=== PATIENT | male | born 1950 | race Hispanic/Latino ===

== ENCOUNTER 2019-03-04 16:00 | Observation (INO) | payer BC, OTHER ==
[2019-03-04 16:32] VITALS: BMI 24.7
[2019-03-04 16:48] LABS: Absolute Lymphocytes (CBC) 2.9 K/uL (0.7-4.9); Basophils % 1.1 % (0-1.3); Hematocrit 41.8 % (39.6-49.0); Lymphocytes % 33.5 % (15.3-44.8); MPV 8.3 fL (7.6-11.3); RBC Red Blood Cell Count 4.75 M/uL (4.33-5.43)
[2019-03-04] MEDS ORDERED: NA CHLORIDE 0.9% 1,000 ML IV SCH (17:00)
[2019-03-04] MEDS ORDERED: ONDANSETRON 4 MG/2 ML VIAL IV PRN (17:04)
[2019-03-04] MEDS ORDERED: ACETAMINOPHEN 500 MG TAB PO PRN (17:04)
[2019-03-04 17:08] LABS: Albumin 3.9 g/dL (3.4-5.0); Bilirubin Total 0.9 mg/dL (0.2-1.0); CKMB Creatine Kinase MB 1.2 ng/mL (0.3-3.6); Phosphorus 3.3 mg/dL (2.5-4.9); Potassium 4.1 mmol/L (3.5-5.1); Protein, Total 7.7 g/dL (6.4-8.2)
[2019-03-04] MEDS: NA CHLORIDE 0.9% 1,000 ML IV SCH (17:13)
--- NOTE | 2019-03-04 17:14 | P.HP ---
Certification for Inpatient Patient admitted to: Observation With expected LOS: <2 Midnights Patient will require the following post-hospital care: None Practitioner: I am a practitioner with admitting privileges, knowledge of patient current condition, hospital course, and medical plan of care. Services: Services provided to patient in accordance with Admission requirements found in Title 42 Section 412.3 of the Code of Federal Regulations Patient History Date of Service: 03/04/19 Reason for admission: BILL History of Present Illness: 68-year-old male with past medical history of hypertension was sent from Dr. Cagle`s office as his blood work showed acute kidney injury and was sent here for IV hydration in view of the possible renal insufficiency due to dehydration. Patient denies any symptoms at this time. Denies any chest pain or shortness of breath. No fever no chills. No diarrhea or nausea vomiting. No sick contacts. Allergies Sulfa (Sulfonamide Antibiotics) [Sulfa(Sulfonamide Antibiotics)] Allergy ( Intermediate, Verified 08/15/11 22:10) Itching/Hives/Rash Home medications list reviewed: Yes Home Medications: Metoprolol Tartrate 25 mg PO BID 03/04/19 Omeprazole [Prilosec] 40 mg PO DAILY PRN 03/04/19 - Past Medical/Surgical History Has patient received pneumonia vaccine in the past: Yes Diabetic: No Past Medical History: Reviewed- Non-Contributory -: htn Past Surgical History: Reviewed- Non-Contributory -: Appendectomy - Family History Family History: Reviewed- Non-Contributory - Social History Smoking Status: Never smoker Place of Residence: Home Review of Systems 10-point ROS is otherwise unremarkable General: Unremarkable ENT: Unremarkable Respiratory: Unremarkable Physical Examination - Vital Signs Temperature: 97.8 F Blood Pressure: 136/86 Pulse: 86 Respirations: 18 - Physical Exam General: Alert, In no apparent distress, Oriented x3 HEENT: Atraumatic, Normocephalic Neck: Supple, 2+ carotid pulse no bruit Respiratory: Clear to auscultation bilaterally, Normal air movement Cardiovascular: Normal pulses, Regular rate/rhythm Capillary refill: <2 Seconds Gastrointestinal: Soft and benign, W/out hepatosplenomegaly Musculoskeletal: No clubbing, No swelling Integumentary: No rashes, No tenderness/swelling Neurological: Normal speech, Normal strength at 5/5 x4 extr Lymphatics: No axilla or inguinal lymphadenopathy Urinary: Other (No bladder distention) External genitalia: Deferred Rectal: Deferred - Studies Laboratory Data (last 24 hrs) 03/04/19 16:35: Sodium 140, Potassium 4.1, BUN 51 H, Creatinine 3.82 H, Glucose 90, Phosphorus 3.3, Total Bilirubin 0.9, AST 10 L, ALT 17, Alkaline Phosphatase 88 03/04/19 16:35: WBC 8.7, Hgb 14.5, Hct 41.8, Plt Count 239 Assessment and Plan - Problems (Diagnosis) (1) Acute kidney injury Current Visit: Yes Status: Acute Plan: Will monitor under telemetry Start on IV hydration Will monitor renal parameters Consult nephrology (2) Dehydration Current Visit: Yes Status: Acute Plan: Start on IV hydration Monitor closely (3) Hypertension Current Visit: Yes Status: Chronic Plan: Continue home medications and titrate as needed (4) GERD (gastroesophageal reflux disease) Current Visit: Yes Status: Chronic Plan: Continue home medications and titrate as needed Discharge Plan: Home Plan to discharge in: 24 Hours - Advance Directives Does patient have a Living Will: No Does patient have a Durable POA for Healthcare: No Time Spent Managing Pts Care (In Minutes): 45
[2019-03-04] MEDS ORDERED: PANTOPRAZOLE 40MG TABLET PO PRN (17:35)
[2019-03-04 19:01] LABS: Urine Appearance CLEAR; Urine Bilirubin NEGATIVE (NEG); Urine Color YELLOW; Urine Glucose NEGATIVE (NEG)
[2019-03-04 19:02] LABS: Urine Blood TRACE (NEG); Urine Microscopic Reflex ORDER UMIC; Urine Protein NEGATIVE (NEG); Urine Urobilinogen 0.2 mg/dL (0.2-1.0)
[2019-03-04 19:03] LABS: Urine Bacteria <20 /HPF (NONE SEEN); Urine Culture Reflex Order NOT NEEDED; Urine RBC <5 /HPF (NONE SEEN)
--- NOTE | 2019-03-04 20:12 | RAD REPORT ---
EXAM DESCRIPTION: US - Renal Ultrasound-Complete - 03/04/2019 8:05 pm CLINICAL HISTORY: BILL Flank pain COMPARISON: Abdomen Exam Complete dated 10/03/2016 FINDINGS: Both kidneys demonstrate increased echogenicity. The right kidney measures 8.0 x 4.1 x 4.1 cm. No hydronephrosis, focal mass or perinephric fluid. The left kidney measures 10.7 x 3.8 x 3.8 cm. No hydronephrosis, focal mass or perinephric fluid. The urinary bladder is incompletely distended without gross abnormality seen. Rounded cystic structur e is seen superior to the urinary bladder. IMPRESSION: Echogenic kidneys bilaterally compatible with underlying medical renal disease. Rounded cystic structure is seen superior to the urinary bladder of unclear etiology. CT abdomen/pelv is may be helpful for further workup.
[2019-03-04] MEDS: METOPROLOL TAR 25 MG TAB PO SCH (20:21)
[2019-03-05] MEDS: NA CHLORIDE 0.9% 1,000 ML IV SCH (03:23)
[2019-03-05 05:43] LABS: Absolute Lymphocytes (CBC) 1.8 K/uL (0.7-4.9); Basophils % 0.7 % (0-1.3); Hematocrit 39.4 % (39.6-49.0); Lymphocytes % 27.4 % (15.3-44.8); MPV 8.3 fL (7.6-11.3); RBC Red Blood Cell Count 4.47 M/uL (4.33-5.43)
[2019-03-05 05:48] LABS: Albumin 3.4 g/dL (3.4-5.0); Magnesium 2.2 mg/dL (1.8-2.4); Phosphorus 3.2 mg/dL (2.5-4.9); Potassium 4.2 mmol/L (3.5-5.1); Protein, Total 6.8 g/dL (6.4-8.2)
[2019-03-05] MEDS: METOPROLOL TAR 25 MG TAB PO SCH (08:38)
--- NOTE | 2019-03-05 08:53 | RAD REPORT ---
EXAM DESCRIPTION: CT - Abdomen Pelvis Wo Contrast - 03/05/2019 8:19 am CLINICAL HISTORY: Abdominal pain. mass above bladder as per us COMPARISON: Renal Ultrasound-Complete dated 03/04/2019 TECHNIQUE: CT imaging of the abdomen and pelvis was performed without contrast. Solid organ, bowel a nd vascular assessment is limited due to lack of IV and oral contrast. All CT scans are performed using dose optimization technique as appropriate and may include automated exposure control or mA/KV adjustment according to patient size. FINDINGS: The lower lung zepeda are clear. The liver, spleen, pancreas, adrenal glands are within normal limits for a limited non-contrast exami nation.Both kidneys are mildly atrophic in size without hydronephrosis. No bowel obstruction, free air, free fluid or abscess. Appendectomy. The osseous structures are within normal limits.Fluid-filled structure superior to the urinary bladde r is related to the patient's penile prosthesis. IMPRESSION: No worrisome mass is detected in the abdomen or pelvis. No acute finding is demonstrated . A limited non-contrast examination was performed as detailed.
--- NOTE | 2019-03-05 09:24 | P.PN ---
Subjective Date of Service: 03/05/19 Chief Complaint: BILL Subjective: No new changes, Improving Review of Systems 10-point ROS is otherwise unremarkable General: Unremarkable Eyes: Unremarkable ENT: Unremarkable Respiratory: Unremarkable Physical Examination - Vital Signs Temperature: 97.3 F Blood Pressure: 126/78 Pulse: 65 Respirations: 16 Pulse Ox (%): 97 - Physical Exam General: Alert, In no apparent distress, Oriented x3 HEENT: Atraumatic, Normocephalic Neck: Supple Respiratory: Clear to auscultation bilaterally Cardiovascular: Normal pulses, Regular rate/rhythm Capillary refill: <2 Seconds Gastrointestinal: Soft and benign, W/out hepatosplenomegaly Musculoskeletal: No clubbing Integumentary: No rashes Neurological: Normal speech, Normal strength at 5/5 x4 extr Lymphatics: No axilla or inguinal lymphadenopathy Urinary: Other (no bladder distention ) External genitalia: Deferred Rectal: Deferred - Studies Laboratory Data (last 24 hrs) 03/05/19 05:04: Sodium 143, Potassium 4.2, BUN 47 H, Creatinine 3.75 H, Glucose 91, Phosphorus 3.2, Magnesium 2.2, Total Bilirubin 1.0, AST 8 L, ALT 14, Alkaline Phosphatase 57 03/05/19 05:04: WBC 6.7 D, Hgb 13.7, Hct 39.4 L, Plt Count 230 03/04/19 16:35: Sodium 140, Potassium 4.1, BUN 51 H, Creatinine 3.82 H, Glucose 90, Phosphorus 3.3, Total Bilirubin 0.9, AST 10 L, ALT 17, Alkaline Phosphatase 88 03/04/19 16:35: WBC 8.7, Hgb 14.5, Hct 41.8, Plt Count 239 Assessment & Plan - Problems (Diagnosis) (1) Acute kidney injury Current Visit: Yes Status: Acute Plan: Will monitor under telemetry on IV hydration monitor renal parameters nephrology consult appreciated (2) Dehydration Current Visit: Yes Status: Acute Plan: on IV hydration Monitor closely (3) Hypertension Current Visit: Yes Status: Chronic Plan: Continue home medications and titrate as needed (4) GERD (gastroesophageal reflux disease) Current Visit: Yes Status: Chronic Plan: Continue home medications and titrate as needed (5) Abnormal ultrasound Current Visit: Yes Status: Acute Plan: Ultrasound showed possibly medical renal disease round cystic mass above the bladder CT of the abdomen pelvis without contrast to further delineate Time Spent Managing Pts Care (In Minutes): 42
--- NOTE | 2019-03-05 11:19 | P.CNS ---
Date of Consult: 03/05/19 Reason for Consult: BILL Chief Complaint: BILL History of Present Illness: A 68 Y/o man with PMHX of GERDon PPI, remote hx of prostate Ca, and HTN and CKD IVin November Cr 3.6, GFR 16 pt was sent from nephrology clinic for abnormal labs November Cr 3.6, GFR 16 yesterday his Cr 3.7, GFR 16 pt denied NSAID intake or contrast exposure denied chest pain, palpitation, nausea, vomiting or diarrhea Allergies Sulfa (Sulfonamide Antibiotics) [Sulfa(Sulfonamide Antibiotics)] Allergy ( Intermediate, Verified 03/04/19 17:40) Itching/Hives/Rash Home Medications: Metoprolol Tartrate 25 mg PO BID 03/04/19 Omeprazole [Prilosec] 40 mg PO DAILY PRN 03/04/19 - Past Medical/Surgical History Diabetic: No -: htn -: Appendectomy - Social History Place of Residence: Home Physical Examination Temp Pulse Resp BP Pulse Ox 97.3 F 65 16 126/78 97 03/05/19 09:24 03/05/19 09:24 03/05/19 09:24 03/05/19 09:24 03/05/19 09:24 General: In no apparent distress, Oriented x3 HEENT: Atraumatic Neck: Supple, Without JVD or thyroid abnormality Respiratory: Clear to auscultation bilaterally, Normal air movement Cardiovascular: No edema, Normal pulses, Regular rate/rhythm, Normal S1 S2, No murmurs Gastrointestinal: Normal bowel sounds, Soft and benign Musculoskeletal: No swelling Integumentary: No rashes Laboratory Data (last 24 hrs) 03/05/19 05:04: Sodium 143, Potassium 4.2, BUN 47 H, Creatinine 3.75 H, Glucose 91, Phosphorus 3.2, Magnesium 2.2, Total Bilirubin 1.0, AST 8 L, ALT 14, Alkaline Phosphatase 57 03/05/19 05:04: WBC 6.7 D, Hgb 13.7, Hct 39.4 L, Plt Count 230 03/04/19 16:35: Sodium 140, Potassium 4.1, BUN 51 H, Creatinine 3.82 H, Glucose 90, Phosphorus 3.3, Total Bilirubin 0.9, AST 10 L, ALT 17, Alkaline Phosphatase 88 03/04/19 16:35: WBC 8.7, Hgb 14.5, Hct 41.8, Plt Count 239 - Problems (1) Acute kidney injury Current Visit: Yes Status: Acute Conclusions/Impression: BILL on CKD IV could due to progressive CKD November Cr 3.6, GFR 16 CKD due to HTN nephrosclrosis US; asymmetrical kidneys UA: no prot , trace bld with <5 RBC Urology consulted no skin rash or eosiniophilia unlikely GN , due to absence of proteinuria cont IVF renal dose meds will dc PPI GERD will dc PPI and start famotidine HTN controlled Bladder cystic lesion on US CT scan no mass or lesion Urology consulted
--- NOTE | 2019-03-05 19:41 | CON ---
History Of Present Illness: This is a 68-year-old gentleman admitted for acute on chronic renal fail ure. He has renal failure stage disease 4. He was sent for IV hydration. He had an ultrasound perf ormed showing a possible bladder mass superior to the bladder that is fluid-filled. On CT scan, it w as revealed that it is the penile prosthesis reservoir, which is normal. Otherwise, his bowel looks good, bladder looks good, prostate is okay. His prostate cancer is under control. He had cryotherap y done in 2011. His latest PSA was 0.3 done on January 26, 2019, through my office. Patient is void ing well. His AUA symptom score is 3/35. He does not have any pressing urological issues at this ti wi. Allergies: TO SULFA. Home Medications: Metoprolol, omeprazole. Past Medical History: Prostate cancer, status post cryotherapy, stable. Past Surgical History: Appendectomy. Family History: Noncontributory. Social History: Nonsmoker. Resides at home. Review of Systems: 10-point review of systems otherwise unremarkable. Physical Examination: Vital Signs: 97.9, 76, 18, 147/78, 98% saturation. HEENT: Atraumatic, normocephalic. Neck: Supple. Respiratory: Clear to auscultation bilaterally. Cardiovascular: Normal S1, S2. Abdomen: Soft, nontender. Skin: No rashes. Neurologic: Normal speech. Lymphatic: No adenopathy. Genitourinary: Penis circumcised. No lesions. Testicles descended and normal. In the scrotum, I c ould feel the penile prosthesis pump, 3-piece prosthesis. FERNANDA: Benign. Assessment: Patient with acute possible on chronic renal failure stage 4, in for workup, urologicall y stable, doing well. No further urological intervention is necessary. PB/MODL Voice ID: [id number] Report ID: [id number]
[2019-03-05] MEDS: METOPROLOL TAR 50 MG TAB PO SCH (20:03)
[2019-03-05 20:43] VITALS: O2SAT 98
[2019-03-06] MEDS ORDERED: PANTOPRAZOLE 40 MG INJ IVP ONE (00:47)
[2019-03-06] MEDS ORDERED: SODIUM CHLORIDE 0.9% 10ML INJ IV PRN (00:47)
[2019-03-06] MEDS: NA CHLORIDE 0.9% 1,000 ML IV SCH ×2 (01:23→01:27)
[2019-03-06 06:11] LABS: Basophils % 0.9 % (0-1.3); Hematocrit 38.9 % (39.6-49.0); Lymphocytes % 27.2 % (15.3-44.8)
[2019-03-06 06:25] LABS: Potassium 4.3 mmol/L (3.5-5.1)
[2019-03-06 08:08] VITALS: BP 140/81; TEMP 98
[2019-03-06] MEDS: METOPROLOL TAR 50 MG TAB PO SCH (08:47)
[2019-03-06] MEDS ORDERED: FAMOTIDINE 20 MG TAB PO SCH (09:00)
--- NOTE | 2019-03-06 10:30 | P.DS ---
Admission Date: 03/04/19 Discharge Date: 03/06/19 Disposition: ROUTINE DISCHARGE Discharge Condition: GOOD Reason for Admission: BILL - Problems (1) Acute kidney injury Status: Acute (2) Dehydration Status: Acute (3) Hypertension Status: Chronic (4) GERD (gastroesophageal reflux disease) Status: Chronic (5) Abnormal ultrasound Status: Acute Brief History of Present Illness: 68-year-old male with past medical history of hypertension was sent from Dr. Cagle`s office as his blood work showed acute kidney injury and was sent here for IV hydration in view of the possible renal insufficiency due to dehydration. Patient denies any symptoms at this time. Denies any chest pain or shortness of breath. No fever no chills. No diarrhea or nausea vomiting. No sick contacts. Hospital Course: He was admitted and was monitored closely under telemetry. Started on IV hydration. Nephrology was consulted. Renal parameters, Improving with hydration . He had a renal ultrasound which showed some cystic lesion in the abdomen above the bladder. Urology was also consulted . His antihypertensives were titrated. He wanted to go home and is being discharged home today in a stable condition with advice to follow up with PCP in 1 week and also with nephrology in 1-2 weeks Vital Signs/Physical Exam: Temp Pulse Resp BP Pulse Ox 98 F 62 16 140/81 99 03/06/19 08:00 03/06/19 08:47 03/06/19 08:00 03/06/19 08:47 03/06/19 08:00 General: Alert, In no apparent distress HEENT: Atraumatic, Normocephalic Respiratory: Clear to auscultation bilaterally, Normal air movement Cardiovascular: Regular rate/rhythm, Normal S1 S2 Capillary refill: <2 Seconds Gastrointestinal: Soft and benign, W/out hepatosplenomegaly Musculoskeletal: No clubbing, No swelling Integumentary: No rashes, No breakdown Neurological: Normal strength at 5/5 x4 extr Laboratory Data at Discharge: WBC 7.3 K/uL (4.3-10.9) 03/06/19 05:57 Hgb 13.5 g/dL (13.6-17.9) L 03/06/19 05:57 Hct 38.9 % (39.6-49.0) L 03/06/19 05:57 Plt Count 230 K/uL (152-406) 03/06/19 05:57 Sodium 143 mmol/L (136-145) 03/06/19 05:57 Potassium 4.3 mmol/L (3.5-5.1) 03/06/19 05:57 BUN 44 mg/dL (7-18) H 03/06/19 05:57 Creatinine 3.56 mg/dL (0.55-1.3) H 03/06/19 05:57 Glucose 85 mg/dL (74-106) 03/06/19 05:57 Phosphorus 3.2 mg/dL (2.5-4.9) 03/05/19 05:04 Magnesium 2.2 mg/dL (1.8-2.4) 03/05/19 05:04 Total Bilirubin 1.0 mg/dL (0.2-1.0) 03/05/19 05:04 AST 8 U/L (15-37) L 03/05/19 05:04 ALT 14 U/L (12-78) 03/05/19 05:04 Alkaline Phosphatase 57 U/L (45-117) 03/05/19 05:04 Home Medications: Metoprolol Tartrate 25 mg PO BID 03/04/19 Omeprazole [Prilosec] 40 mg PO DAILY PRN 03/04/19 Diet: AHA Activity: Ad shyann Followup: Tanisha Rodney MD [COURTESY - CAN ADMIT] - Time spent managing pt's care (in minutes): 39
--- NOTE | 2019-03-06 20:42 | PN ---
Date of Progress Note: 03/06/2019 Subjective: Patient doing well. No nausea. No vomiting. Physical Examination: Vital Signs: Blood pressure 140/81, pulse of 62, afebrile. Chest: Clear to auscultation. Heart: S1, S2. Systolic murmur. Abdomen: Soft, nontender. Extremities: No edema. Laboratory Data: WBC 7.03, H and H 13.5/38.9. Sodium 143, potassium 4.3, bicarb 23, BUN 44, creatinine 3.5, GFR of 17, calcium 8.2. Current Medications: The patient on include: 1. Tylenol. 2. Pepcid. 3. Metoprolol. 4. Pantoprazole. Assessment And Plan: 1. Chronic kidney disease, stage 4 secondary to hypertension, nephrosclerosis. Stable on baseline. No need for renal replacement therapy. We will continue to monitor. 2. Hypertension, controlled, optimal. Continue current treatment. 3. Bladder cyst was cleared by the urology. HEIDI/DAMEON Voice ID: [id number] Report ID: [id number] NVAYA
== END 2019-03-06 12:42 | disposition home or self-care (01) ==
LOC: INTOOBSV 16:00 → 2ND 16:00
PROVIDERS: ADMIT Family Medicine; ATTEND Family Medicine
DX: N17.9 Acute kidney failure, unspecified (principal); I12.9 Hypertensive chronic kidney disease with stage 1 through stage 4 chronic kidney disease, or unspecified chronic kidney disease; N18.4 Chronic kidney disease, stage 4 (severe); K21.9 Gastro-esophageal reflux disease without esophagitis; E86.0 Dehydration; Z88.2 Allergy status to sulfonamides; Z85.46 Personal history of malignant neoplasm of prostate
CPT/HCPCS: 87088; 85025 ×3; 80048; 36415 ×3; 83735; 82550 ×2; 84100 ×2; 84443; 82553; 80053 ×2; 74176; 76770; C9113; J7030 ×4; G0379; G0378 ×4; 81003; 81015; 87086

== ENCOUNTER 2021-01-24 17:09 | Emergency (ER) | payer BC, OTHER ==
--- NOTE | 2021-01-24 18:21 | ER ---
Nurse's Notes [facility] Name: Rio Parker Age: 70 yrs Sex: Male : 1950 Arrival Date: 01/24/2021 Time: 17:11 Bed 18 Private MD: Diagnosis: Chronic kidney disease, unspecified Presentation: 01/24 17:12 Chief complaint: Patient states: Was told by Dr Tan office that GFR level were low vg1 and was told to come to ED for further evaluation. Pt had blood work done on Monday01/22/21. Patient denies any pain. Coronavirus screen: Vaccine status: Patient reports being unvaccinated. Ebola Screen: Patient negative for fever greater than or equal to 101.5 degrees Fahrenheit, and additional compatible Ebola Virus Disease symptoms. Initial Sepsis Screen: Does the patient meet any 2 criteria? No. Patient's initial sepsis screen is negative. Does the patient have a suspected source of infection? No. Patient's initial sepsis screen is negative. Risk Assessment: Do you want to hurt yourself or someone else? Patient reports no desire to harm self or others. Onset of symptoms was January 24, 2021. 17:12 Method Of Arrival: Ambulatory vg1 17:12 Acuity: FANNY 3 vg1 Triage Assessment: 17:16 General: Appears in no apparent distress. comfortable, Behavior is calm, cooperative. vg1 Pain: Denies pain. Historical: - Allergies: 17:16 Sulfa (Sulfonamide Antibiotics); vg1 - Home Meds: 17:16 Metoprolol Tartrate Oral [Active]; vg1 - PMHx: 17:16 Hypertensive disorder; vg1 - Immunization history:: Adult Immunizations up to date, Client reports receiving the 2nd dose of the Covid vaccine. - Social history:: Smoking status: Patient denies any tobacco usage or history of. - Family history:: not pertinent. - Hospitalizations: : No recent hospitalization is reported. Screenin:47 Abuse screen: Denies threats or abuse. Denies injuries from another. Nutritional tc5 screening: No deficits noted. Tuberculosis screening: No symptoms or risk factors identified. Fall Risk None identified. Assessment: 17:46 Reassessment: Patient appears in no apparent distress at this time. No changes from tc5 previously documented assessment. 17:49 General: Appears in no apparent distress. Behavior is calm, cooperative, appropriate tc5 for age, pt reports "there is nothing wrong with me" my doctor sent me over here because of my GFR was abnormal, "my GFR is always abnormal". Vital Signs: 17:12 BP 180 / 95; Pulse 75; Resp 16; Temp 98.4; Pulse Ox 98% ; Weight 72.57 kg; Height 5 ft. vg1 6 in. (167.64 cm); Pain 0/10; 17:12 Body Mass Index 25.82 (72.57 kg, 167.64 cm) 1 ED Course: 17:11 Patient arrived in ED. vg1 17:16 Triage completed. vg1 17:16 Arm band placed on. 1 17:25 Elisabeth Martinez, KUSH is Primary Nurse. tc5 18:03 Facundo Fitzgerald MD is Attending Physician. rn Administered Medications: No medications were administered Outcome: 18:21 Discharge ordered by . rn 18:46 Patient left the ED. tc5 Signatures: Facundo Fitzgerald MD MD rn Garcia, Victoria, RN RN [facility] Elisabeth Martinez RN RN tc Corrections: (The following items were deleted from the chart) 17:17 17:16 Allergies: No Known Allergies; 1 [facility]
--- NOTE | 2021-01-24 18:21 | EDPHYS ---
Physician Documentation [facility] Name: Rio Parker Age: 70 yrs Sex: Male : 1950 Arrival Date: 01/24/2021 Time: 17:11 Bed 18 Private MD: ED Physician Facundo Fitzgerald HPI: 01/24 18:16 This 70 yrs old Male presents to ER via Ambulatory with complaints of Abnormal carpet journeyman Results. 18:16 Patient states that his doctor called him today due to recent blood work showing a low rn GFR. Patient states has had a low GFR known about this for 2 years or more and sees a kidney specialist. He has not had blood work with his PCP for a few years and told her that this is not a new finding. States baseline GFR 14 with his kidney doctor and his PCP told him GFR of 13 today. Patient urinating normal without any complaints. Patient states does not want to be here and does not feel like needs to be in the ER. Only came because PCP told him to.. Onset: The symptoms/episode began/occurred at an unknown time. Severity of symptoms: At their worst the symptoms were very mild in the emergency department the symptoms are unchanged. The patient has experienced similar episodes in the past, chronically. The patient has been recently seen by a physician:. Historical: - Allergies: 17:16 Sulfa (Sulfonamide Antibiotics); vg1 - Home Meds: 17:16 Metoprolol Tartrate Oral [Active]; vg1 - PMHx: 17:16 Hypertensive disorder; vg1 - Immunization history:: Adult Immunizations up to date, Client reports receiving the 2nd dose of the Covid vaccine. - Social history:: Smoking status: Patient denies any tobacco usage or history of. - Family history:: not pertinent. - Hospitalizations: : No recent hospitalization is reported. ROS: 18:16 Constitutional: Negative for fever, chills, and weight loss, Eyes: Negative for injury, rn pain, redness, and discharge, Neck: Negative for injury, pain, and swelling, Cardiovascular: Negative for chest pain, palpitations, and edema, Respiratory: Negative for shortness of breath, cough, wheezing, and pleuritic chest pain, Abdomen/GI: Negative for abdominal pain, nausea, vomiting, diarrhea, and constipation, Back: Negative for injury and pain, : Negative for injury, bleeding, discharge, and swelling, MS/Extremity: Negative for injury and deformity, Skin: Negative for injury, rash, and discoloration, Neuro: Negative for headache, weakness, numbness, tingling, and seizure. Exam: 18:16 Constitutional: This is a well developed, well nourished patient who is awake, alert, rn and in no acute distress. Head/Face: Normocephalic, atraumatic. Cardiovascular: Regular rate and rhythm. No pulse deficits. Respiratory: Speaking full sentences, unlabored. No increased work of breathing, no retractions or nasal flaring. Skin: Warm, dry with normal turgor. Normal color with no rashes, no lesions, and no evidence of cellulitis. Neuro: Awake and alert, GCS 15, Normal gait. Vital Signs: 17:12 BP 180 / 95; Pulse 75; Resp 16; Temp 98.4; Pulse Ox 98% ; Weight 72.57 kg; Height 5 ft. vg1 6 in. (167.64 cm); Pain 0/10; 17:12 Body Mass Index 25.82 (72.57 kg, 167.64 cm) vg1 MDM: 18:03 Patient medically screened. rn 18:16 Differential Diagnosis Chronic kidney disease. Data reviewed: vital signs, nurses rn notes, and as a result, I will discharge patient. Counseling: I had a detailed discussion with the patient and/or guardian regarding: the historical points, exam findings, and any diagnostic results supporting the discharge/admit diagnosis, the need for outpatient follow up, to return to the emergency department if symptoms worsen or persist or if there are any questions or concerns that arise at home. Special discussion: I discussed with the patient/guardian in detail that at this point there is no indication for admission to the hospital. It is understood, however, that if the symptoms persist or worsen the patient needs to return immediately for re-evaluation. Based on the history and exam findings, there is no indication for further emergent testing or inpatient evaluation. Nephrology. ED course: Patient without any acute complaints, urinating well, urine and urine specimen cup provided is clear, no edema or swelling and no shortness of breath. Patient has known chronic kidney disease and patient does not wish to have further work-up here in hospital. Patient did not want to come. Patient plans on contacting his nursing specialist tomorrow for appointment and further recommendations.. Administered Medications: No medications were administered Disposition Summary: 01/24/21 18:21 Discharge Ordered Location: Home rn Problem: chronic rn Symptoms: are unchanged rn Condition: Stable rn Diagnosis - Chronic kidney disease, unspecified rn Followup: rn - With: Private Physician - When: Tomorrow - Reason: Recheck today's complaints, Re-evaluation by your physician Discharge Instructions: - Discharge Summary Sheet rn - Chronic Kidney Disease, Adult rn Forms: - Medication Reconciliation Form rn - Thank You Letter rn - Antibiotic research program intern - Prescription Opioid Use rn Signatures: Facundo Fitzgerald MD MD rn Taylor Ledesma RN RN vg1 Corrections: (The following items were deleted from the chart) 17:17 17:16 Allergies: No Known Allergies; vg1 vg1
[2021-01-24 19:02] VITALS: BP 180/95; TEMP 98.4; O2SAT 98
== END 2021-01-24 18:46 | disposition home or self-care (01) ==
LOC: ER 17:09
DX: I12.9 Hypertensive chronic kidney disease with stage 1 through stage 4 chronic kidney disease, or unspecified chronic kidney disease (principal); N18.9 Chronic kidney disease, unspecified; Z88.2 Allergy status to sulfonamides
CPT/HCPCS: 99281